=== PATIENT | female | born 1950 | race Two or more races ===

== ENCOUNTER 2024-10-05 17:28 | Emergency (ER) | payer OTHER ==
[~2024-10-05] VITALS: Ht 154.9 cm; Wt 68.5 kg
[2024-10-05] MEDS ORDERED: METFORMIN HCL500 MG (18:10)
[2024-10-05] MEDS ORDERED: IRBESARTAN75 MG PO (18:11)
[2024-10-05] MEDS ORDERED: CARDIZEM30 MG PO (18:11)
[2024-10-05] MEDS ORDERED: AVALIDE 300-121 EACH PO (18:11)
[2024-10-05] MEDS ORDERED: CARDURA1 MG PO (18:12)
[2024-10-05] MEDS ORDERED: KETOROLAC TROMETHAMINE 60 MG VIAL IM ONE (23:00)
== END 2024-10-05 22:33 | disposition home or self-care (01) ==
LOC: ER 17:30
DX: S80.212A Abrasion, left knee, initial encounter (principal); W18.30XA Fall on same level, unspecified, initial encounter; Y93.89 Activity, other specified; Y92.89 Other specified places as the place of occurrence of the external cause
CPT/HCPCS: 73560; 96372; 99283; J1885